=== PATIENT | female | born 1990 | race Caucasian/White ===

== ENCOUNTER → 2022-06-11 | Emergency (ER) | payer OTHER ==
[~2022-06-11] VITALS: Ht 162.6 cm; Wt 73.0 kg
[~2022-06-11] MED LIST: CATAFLAM50 MG PO; ORPH100T PO; ZOFRAN8 MG PO
== END | disposition home or self-care (01) ==
LOC: ER 19:56
DX: Z53.21 Procedure and treatment not carried out due to patient leaving prior to being seen by health care provider (principal)